=== PATIENT | female | born 1955 | race Caucasian/White ===

== ENCOUNTER 2017-03-07 16:23 | Emergency (ER) | payer OTHER ==
[~2017-03-07 16:23] MED LIST: ACET500CAP PO; ADVAIR250 INH; ALB4 PO; ALBUTEROL5 INH; ATROVENTUD INH; B12250T PO; BROVANA15 MCG INH; BUM1 PO; BUM2 PO; C5; C5 PO; CALTRA600D PO; CELEXA40 MG PO; CIP5 PO; CONSTULOSE PO; COREG3 PO; COUMADIN6 MG PO; CYANO1000T PO; D.O.S.100 MG PO; DILT-XR240 MG PO; DULERA 100 MCG/13 GM INH; DULERA 200 MCG/13 GM INH; DUONEB INH; FESO4 PO; FISH-EPA1000 MG PO; HABIT21 TOP; HALF81 PO; IRON325 MG PO; KCL40UDL PO; KDUR20 PO; KLONO1 PO; KLONO5 PO; KLONOPIN WAF1 MG PO; KLOR-CON M1010 MEQ PO; KLOR-CON M2020 MEQ PO; L20 PO; L40 PO; LEXAPRO20 PO; MUCINEX1200 MG PO; NEUR300 PO; NICODERM C14 MG/24 H TOP; NITROSTAT0.4 MG SL; NORCO1 TAB PO; NORV25 PO; NYS500UDL PO; P10 PO; P20 PO; PEP20 PO; PERCOCET1 TA2 PO; PRAVACHOL40 MG PO; PRIN2.5 PO; PROAIR HFA INH; PROZAC PO; STERAPRED DS10 MG; STIOLTO RESPIMAT4 GM INH; TESS PO; TESSALON200 MG PO; TUDORZA PRESS400 MCG INH; V5 PO; VALIUM10 MG PO; VIB100 PO; VIBRATAB100 MG PO; VITAMIN B-122500 MCG SL; VITC500 PO; VOLTAREN1 % TOP; WELLSR150 PO; ZAROX2.5B PO; ZOFRAN8 PO
[2017-03-07 17:20] LABS: BASOPHILS 0.1 %; BASOPHILS ABSOLUTE 0.01 10/3/uL (0.0-0.16); EOSINOPHILS 2.2 %; EOSINOPHILS ABSOLUTE 0.17 10/3/uL (0.0-0.53); ER CBC TAT 0 Hrs 03 Mins; HEMOGLOBIN 12.1 g/dL (12.0-16.0); IMMATURE GRANULOCYTES 0.3 %; IMMATURE GRANULOCYTES ABSOLUTE 0.02 10/3/uL (0.0-0.11); LYMPHOCYTES 25.7 %; MEAN CORPUS HGB CONC 32.7 g/dL (32.0-36.0); MEAN CORPUSCULAR HEMOGLOB 31.6 pg (26.0-34.0); MEAN PLATELET VOLUME 9.6 fL (9.2-13.0); MONOCYTES 12.5 %; MONOCYTES ABSOLUTE 0.97 10/3/uL (0.21-1.20); NEUTROPHILS 59.2 %; PLATELET COUNT 162 10/3/uL (150-400); RBC DISTRIBUTION WIDTH 14.1 % (12.0-16.0); RED CELL COUNT 3.83 10/6/uL (4.0-5.6); WHITE BLOOD CELLS 7.8 10/3/uL (4.5-10.5)
[2017-03-07 17:21] LABS: MANUAL DIFF NO %; MEAN CORPUSCULAR VOLUME 96.6 fL (80-100)
[2017-03-07 17:28] LABS: PARTIAL THROMBO TIME 31.6 SEC (22.5-37.2)
[2017-03-07 17:29] LABS: ASCORBIC ACID (UR NOT ORDER) NEG (NEG); BILIRUBIN, URINE NEGATIVE (NEG); ER URINALYSIS TAT 0 Hrs 12 Mins; KETONE, URINE NEGATIVE (NEG); LEUKOCYTE ESTERASE(NOT OR NEG (NEG); NITRITE (URINE) NEG (NEG); WBC (NOT ORDERED) (RFLEX) 1 (0-5)
[2017-03-07 17:33] LABS: PROTIME (NOT ORD) 22.7 SEC (12.0-14.5)
[2017-03-07 17:36] LABS: AMPHETAMINES (NOT ORD) NEG (NEG); BARBITURATES (NOT ORDERED NEG (NEG); BENZODIAZEPINES (NOT ORD) NEG (NEG); CANNABINOIDS (THC) NEG (NEG); COCAINE (NOT ORDERED) NEG (NEG); OPIATES POS (NEG); PHENCYCLIDINE(PCP) NEG (NEG); TRICYCLICS NEG (NEG)
[2017-03-07 17:39] LABS: BUN (BLOOD UREA NITROGEN) 10 MG/DL (6-23); CALCIUM, SERUM 8.7 MG/DL (8.5-10.4); CHEST PAIN PROFILE TAT 0 Hrs 22 Mins; CHLORIDE, SERUM 103 MMOL/L (96-112); CO2 (CARBON DIOXIDE) 32 MMOL/L (24-34); CREATININE 1.11 MG/DL (0.55-1.02); GFR AFRICAN AMERICAN 62 ML/MIN (>=60); GFR NON AFRICAN AMERICAN 53 ML/MIN (>=60); GLUCOSE, SERUM 97 MG/DL (60-99); POTASSIUM, SERUM 4.1 MMOL/L (3.5-5.3); SODIUM, SERUM 137 MMOL/L (135-148); TROPONIN I <0.02 NG/ML (<0.05)
[2017-03-08 03:52] LABS: ALLENS TEST Pos; BE (BASE EXCESS) -1.4 MEQ/L (0 +/- 2.5); CARBOXYHEMOGLOBIN 3.4 % (0-3); HCO3 (ACTUAL BICARBONATE) 24.3 MEQ/L (23-27); HEMOBLOGIN CONTENT 13.1 G/DL (12-16); INSTRUMENT SERIAL # 8087; METHEMOGLOBIN 0.1 % (0-3); PCO2 (CO2 TENSION) 45 MMHG (35-45); PO2 (O2 TENSION) 62 MMHG (79-93); SAMPLE Arterial; pH 7.35 (7.37-7.43)
== END 2017-03-07 18:20 | disposition home or self-care (01) ==
LOC: ER 16:23
PROVIDERS: Physician Assistant Medical
DX: R41.82 Altered mental status, unspecified (principal); R53.83 Other fatigue; J44.9 Chronic obstructive pulmonary disease, unspecified; I25.2 Old myocardial infarction; I48.91 Unspecified atrial fibrillation; F32.9 Major depressive disorder, single episode, unspecified; F41.9 Anxiety disorder, unspecified; Z95.1 Presence of aortocoronary bypass graft; F17.200 Nicotine dependence, unspecified, uncomplicated; Z88.0 Allergy status to penicillin; Z88.8 Allergy status to other drugs, medicaments and biological substances; Z79.01 Long term (current) use of anticoagulants; Z79.899 Other long term (current) drug therapy
CPT/HCPCS: 36600; 71020; 80048; 80305; 81001; 82805; 83735; 84484; 85025; 85610; 85730; 93005; 99285

== ENCOUNTER 2017-04-13 21:27 | Emergency (ER) | payer OTHER ==
[2017-04-13 18:48] LABS: BASOPHILS 0.1 %; BASOPHILS ABSOLUTE 0.01 10/3/uL (0.0-0.16); EOSINOPHILS 0.6 %; EOSINOPHILS ABSOLUTE 0.11 10/3/uL (0.0-0.53); IMMATURE GRANULOCYTES 0.4 %; LYMPHOCYTES 29.5 %; LYMPHOCYTES ABSOLUTE 5.04 10/3/uL (0.67-4.30); MEAN CORPUS HGB CONC 33.7 g/dL (32.0-36.0); MEAN CORPUSCULAR HEMOGLOB 32.8 pg (26.0-34.0); MEAN CORPUSCULAR VOLUME 97.1 fL (80-100); MEAN PLATELET VOLUME 9.7 fL (9.2-13.0); MONOCYTES 8.9 %; MONOCYTES ABSOLUTE 1.51 10/3/uL (0.21-1.20); NEUTROPHILS 60.5 %; NEUTROPHILS ABSOLUTE 10.32 10/3/uL (2.02-8.40); RBC DISTRIBUTION WIDTH 13.9 % (12.0-16.0)
[2017-04-13 18:49] LABS: ER CBC TAT 0 Hrs 09 Mins; HEMATOCRIT 50.4 % (36.0-48.0); IMMATURE GRANULOCYTES ABSOLUTE 0.07 10/3/uL (0.0-0.11); MANUAL DIFF NO %; PLATELET COUNT 247 10/3/uL (150-400); RED CELL COUNT 5.19 10/6/uL (4.0-5.6); WHITE BLOOD CELLS 17.1 10/3/uL (4.5-10.5)
[2017-04-13 19:07] LABS: A/G RATIO 0.8 (0.7-1.9); ALBUMIN 3.8 G/DL (3.5-5.0); ALKALINE PHOSPHATASE 124 U/L (45-117); BUN (BLOOD UREA NITROGEN) 17 MG/DL (6-23); CALCIUM, SERUM 9.4 MG/DL (8.5-10.4); CHLORIDE, SERUM 97 MMOL/L (96-112); CO2 (CARBON DIOXIDE) 33 MMOL/L (24-34); CREATININE 0.99 MG/DL (0.55-1.02); GFR AFRICAN AMERICAN 71 ML/MIN (>=60); GFR NON AFRICAN AMERICAN 61 ML/MIN (>=60); GLOBULIN 4.5 G/DL (2.5-4.1); GLUCOSE, SERUM 79 MG/DL (60-99); POTASSIUM, SERUM 3.3 MMOL/L (3.5-5.3); SGOT(AST) 31 U/L (5-40); SGPT(ALT) 37 U/L (5-65); SODIUM, SERUM 139 MMOL/L (135-148); TOTAL BILIRUBIN 1.2 MG/DL (0-1.2); TOTAL PROTEIN 8.3 G/DL (6.0-8.5)
[2017-04-13 19:16] LABS: ER DIFF TAT 0 Hrs 36 Mins; LYMPHOCYTES 35 %; LYMPHOCYTES ABSOLUTE (CALC) 5.99 10/3/uL (0.67-4.30); MONOCYTES 9 %; MONOCYTES ABSOLUTE (CALC) 1.54 10/3/uL (0.21-1.20); NEUTROPHILS ABSOLUTE (CALC) 9.58 10/3/uL (2.02-8.40); PLATELET ESTIMATE ADQ (ADEQUATE); SEGMENTED NEUTROPHIL (0) 56 %; TOTAL NUCLEATED CELLS 100
[2017-04-13 19:17] LABS: RBC MORPHOLOGY NORM (NORMAL)
[2017-04-13 20:38] LABS: WBC (NOT ORDERED) (RFLEX) 0 (0-5)
[2017-04-13 20:53] LABS: ASCORBIC ACID (UR NOT ORDER) NEG (NEG); BILIRUBIN, URINE NEGATIVE (NEG); KETONE, URINE NEGATIVE (NEG); LEUKOCYTE ESTERASE(NOT OR NEG (NEG); NITRITE (URINE) NEG (NEG)
[2017-04-13 21:10] LABS: PROCALCITONIN <0.05 ng/mL (<0.5)
[2017-04-14 07:29] LABS: BE (BASE EXCESS) 7.9 MEQ/L (0 +/- 2.5); HCO3 (ACTUAL BICARBONATE) 28.8 MEQ/L (23-27); INSTRUMENT SERIAL # 8087; PCO2 (CO2 TENSION) 30 MMHG (35-45); PO2 (O2 TENSION) 45 MMHG (79-93)
[2017-04-14 07:30] LABS: CARBOXYHEMOGLOBIN 2.1 % (0-3); DEVICE NC; HEMOBLOGIN CONTENT 16.2 G/DL (12-16); METHEMOGLOBIN 0.4 % (0-3); O2 CONTENT 18.9 VOL% (18-24); OPERATOR ID 23712; SAMPLE Arterial
== END 2017-04-13 22:26 | disposition home or self-care (01) ==
LOC: ER 21:27
PROVIDERS: Emergency Medicine
DX: S00.03XA Contusion of scalp, initial encounter (principal); S42.001P Fracture of unspecified part of right clavicle, subsequent encounter for fracture with malunion; J44.9 Chronic obstructive pulmonary disease, unspecified; I10 Essential (primary) hypertension; I48.91 Unspecified atrial fibrillation; F17.200 Nicotine dependence, unspecified, uncomplicated; Z95.1 Presence of aortocoronary bypass graft; Z85.3 Personal history of malignant neoplasm of breast; Z88.0 Allergy status to penicillin; Z88.1 Allergy status to other antibiotic agents; Z79.01 Long term (current) use of anticoagulants; Z79.899 Other long term (current) drug therapy; W19.XXXA Unspecified fall, initial encounter
CPT/HCPCS: 36600; 70450; 71020; 73030-RT; 80053; 81001; 82805; 83605; 84145; 85025; 87040; 94640; 96372; 99285; A9270-GY; J2930